=== PATIENT | female | born 1970 | race Caucasian/White ===

== ENCOUNTER → 2017-05-18 | Outpatient (CLI) | payer OTHER | END | disposition home or self-care (01) | LOC: RAD 09:52 | PROVIDERS: ATTEND Physician Assistant Medical | DX: R10.9 Unspecified abdominal pain (principal) | CPT/HCPCS: 74000 ==

== ENCOUNTER → 2018-04-03 | Outpatient (CLI) | payer OTHER | END | disposition home or self-care (01) | LOC: CFH 10:36 | PROVIDERS: ATTEND Nurse Practitioner | DX: Z12.31 Encounter for screening mammogram for malignant neoplasm of breast (principal) | CPT/HCPCS: 77067 ==

== ENCOUNTER 2018-10-20 10:26 | Day surgery (SDC) | payer OTHER ==
[2018-10-17 10:25] LABS: ALBUMIN 3.5 g/dL (3.4-5.0); ANION GAP 6 mmol/L (5-15); CALCIUM 8.8 mg/dL (8.5-10.1); CHLORIDE 110 mmol/L (98-107)
[2018-10-17 10:28] LABS: ALANINE AMINOTRANSFERASE 21 U/L (12-78); ALKALINE PHOSPHATASE 88 U/L (45-117); BILIRUBIN,TOTAL 0.5 mg/dL (0.2-1.0); CREATININE 0.78 mg/dL (0.55-1.02); TOTAL PROTEIN 7.6 g/dL (6.4-8.2)
[~2018-10-20] VITALS: Ht 172.7 cm; Wt 109.0 kg
[~2018-10-20 10:26] MED LIST: ALBU8.5H8 IN; AMOX1TAB12 PO; ASCO-184 PO; CETI-158 PO; CHOL200024 PO; ESOM40CA PO; FLUT1BLS INH; FLUT9.9S NS; GINK30CA2 PO; LISI5TAB7 PO; METF500T17 PO; METO25TA35 PO; PRAV10TA2 PO
[2018-10-20 10:59] VITALS: BP 134/73
[2018-10-20] MEDS ORDERED: LACTATED RINGERS 1,000 ML IV SCH (11:13)
[2018-10-20] MEDS ORDERED: FENTANYL PF 100 MCG/2ML ONE ×2 (12:19)
[2018-10-20] MEDS ORDERED: MIDAZOLAM 1 MG/ML, 5ML ONE (12:19)
[2018-10-20] MEDS ORDERED: EPINEPHRINE SYRINGE 0.1 MG/ML, 10ML ONE (14:11)
== END 2018-10-20 14:30 | disposition home or self-care (01) ==
LOC: OUT 10:26
PROVIDERS: ATTEND Internal Medicine
DX: Z09 Encounter for follow-up examination after completed treatment for conditions other than malignant neoplasm (principal); D12.5 Benign neoplasm of sigmoid colon; K57.30 Diverticulosis of large intestine without perforation or abscess without bleeding; K21.9 Gastro-esophageal reflux disease without esophagitis; E11.9 Type 2 diabetes mellitus without complications; I10 Essential (primary) hypertension; E78.5 Hyperlipidemia, unspecified; J45.909 Unspecified asthma, uncomplicated; Z88.6 Allergy status to analgesic agent
CPT/HCPCS: 36415; 45381; 45385; 80053; 82962; 88305; 93005; 99152; 99153; A4648; J2250; J3010; J7120

== ENCOUNTER 2019-08-13 16:12 | Outpatient (CLI) | payer OTHER ==
[~2019-08-13 16:12] MED LIST changes: +OXYC-302 PO
== END 2019-08-13 23:59 | disposition home or self-care (01) ==
LOC: CFH 16:12
PROVIDERS: ATTEND Nurse Practitioner
DX: Z12.31 Encounter for screening mammogram for malignant neoplasm of breast (principal)
CPT/HCPCS: 77063; 77067

== ENCOUNTER 2019-11-17 14:13 | Emergency (ER) | payer OTHER, BC ==
[~2019-11-17] VITALS: Ht 172.7 cm; Wt 106.1 kg
[2019-11-17 14:14] VITALS: BP 169/93
[2019-11-17 14:52] LABS: BASOPHILS # (AUTO) 0.03 x10^3/uL (0-0.1); BASOPHILS % (AUTO) 0 % (0-1); EOSINOPHILS % (AUTO) 3 % (1-7); LYMPHOCYTES # (AUTO) 2.06 x10^3/uL (1-3.4); LYMPHOCYTES % (AUTO) 27 % (22-44); MD NO; MEAN CORPUSCULAR HEMOGLOBIN 28.3 pg (27.0-34.8); MEAN CORPUSCULAR HGB CONC 32.9 g/dL (32.4-35.8); MEAN CORPUSCULAR VOLUME 85.9 fL (80-100); MONOCYTES # (AUTO) 0.51 x10^3/uL (0.2-0.8); MONOCYTES % (AUTO) 7 % (2-9); NEUTROPHILS # (AUTO) 4.79 x10^3/uL (1.8-6.8); NEUTROPHILS % (AUTO) 63 % (42-75); PLATELET COUNT 222 x10^3/uL (130-400); RED BLOOD COUNT 4.63 x10^6/uL (3.82-5.3); RED CELL DISTRIBUTION WIDTH 15.2 % (9.6-15.2)
[2019-11-17 15:00] LABS: ALBUMIN 3.4 g/dL (3.4-5.0); ANION GAP 4 mmol/L (5-15); CALCIUM 8.4 mg/dL (8.5-10.1); CHLORIDE 108 mmol/L (98-107); CREATININE 0.88 mg/dL (0.55-1.02)
[2019-11-17] MEDS ORDERED: KETOROLAC 30 MG/1 ML IM ONE (17:00)
[2019-11-17] MEDS ORDERED: KETOROLAC 30 MG/1 ML ONE (17:16)
--- NOTE | 2019-11-17 17:40 | NUR ---
PROVIDER TO D/C WITHOUT TREATING OTT PATIENT REPORTS PAIN IS NOT THAT BAD (/), SHE JUST WANTED TO ASSURE HER BLURRED VISION WASN'T D/T INTRACRANIAL ABNORMALITY
--- NOTE | 2019-11-17 17:45 | NUR ---
REFUSED TORADOL SHOT
== END 2019-11-17 17:49 | disposition home or self-care (01) ==
LOC: ED 17:05
DX: R51 Headache (principal); R11.2 Nausea with vomiting, unspecified; I10 Essential (primary) hypertension; H53.8 Other visual disturbances; E11.9 Type 2 diabetes mellitus without complications; Z90.49 Acquired absence of other specified parts of digestive tract
CPT/HCPCS: 36415; 70450; 80048; 82040; 85025; 99284

== ENCOUNTER → 2020-11-14 | Outpatient (CLI) | payer OTHER, BC ==
[~2020-11-14] MED LIST changes: -OXYC-302 PO; +OXYC1TAB14 PO
== END | disposition home or self-care (01) ==
LOC: CFH 12:28
PROVIDERS: ATTEND Nurse Practitioner
DX: Z12.31 Encounter for screening mammogram for malignant neoplasm of breast (principal)
CPT/HCPCS: 77063; 77067